=== PATIENT | male | born 1960 | race Caucasian/White ===

== ENCOUNTER 2024-05-28 17:43 | Emergency (ER) | payer SELFPAY ==
[2024-05-28] MEDS ORDERED: Sodium Chloride 0.9% 10 ML Syringe FLUSH PRN (17:46)
[2024-05-28] MEDS ORDERED: Morphine 4 MG/ML VIAL ONE ×2 (17:50→19:19)
[2024-05-28] MEDS ORDERED: Ketorolac 30 MG/ML SDV ONE (17:51)
[2024-05-28] MEDS: Morphine 4 MG/ML VIAL IVPUSH ONE ×2 (17:54→19:23)
[2024-05-28] MEDS: Ketorolac 30 MG/ML SDV IVPUSH ONE (17:59)
[2024-05-28 18:02] LABS: BASOPHILS ABSOLUTE AUTO 0.02 K/uL (0.02-0.10); BASOPHILS PERCENT AUTO 0.2 % (0.0-0.5); EOSINOPHILS ABSOLUTE AUTO 0.11 K/uL (0.04-0.40); HEMATOCRIT 41.3 % (40.0-54.0); HEMOGLOBIN 14.3 g/dL (13.0-18.0); LYMPHOCYTES ABSOLUTE AUTO 2.27 K/uL (1.50-4.00); LYMPHOCYTES PERCENT AUTO 19.6 % (20.0-40.0); MEAN CORPUSCULAR HGB CONC 34.6 g/dL (31.0-35.0); MEAN CORPUSCULAR VOLUME 98 fL (76-96); MEAN PLATELET VOLUME 9.8 fL (6.0-10.0); MONOCYTES ABSOLUTE AUTO 0.78 K/uL (0.20-0.80); MONOCYTES PERCENT AUTO 6.7 % (3.0-10.0); NEUTROPHILS ABSOLUTE AUTO 8.38 K/uL (2.00-7.50); NEUTROPHILS PERCENT AUTO 72.5 % (45.0-70.0); PLATELET COUNT,PLT 181 K/uL (150-400); RED BLOOD CELL COUNT 4.21 M/uL (4.50-6.50); RED CELL DISTRIBUTION WIDTH 12.8 % (11.0-16.0); WHITE BLOOD CELL COUNT,WBC 11.6 K/uL (4.0-11.0)
[2024-05-28 18:10] LABS: A/G RATIO 1.1 (0.8-2.0); ALBUMIN 3.6 g/dL (3.4-5.0); ANION GAP 10.5 mmol/L (5.0-15.0); BILIRUBIN TOTAL 0.8 mg/dL (0.0-1.0); BUN/CREATININE RATIO 12.5 (6-25); CALCIUM 8.6 mg/dL (8.5-10.1); CARBON DIOXIDE,CO2 28.3 mmol/L (21.0-32.0); CREATININE 1.04 mg/dL (0.70-1.30); EST CRCL DRUG DOSING (CG) 69.06 mL/min; POTASSIUM,K 3.8 mmol/L (3.5-5.1)
[2024-05-28] MEDS: Sodium Chloride 0.9% 1,000 ML IV SCH ×2 (18:33→20:05)
[2024-05-28] MEDS: Iopamidol 612 MG/ML 100 ML Bottle IV PRN (19:11)
[2024-05-28] MEDS: Sodium Chloride 0.9% 50 ML SDV FLUSH SCH (19:11)
[2024-05-28 19:17] LABS: APPEARANCE,URINE CLEAR (CLEAR); BILIRUBIN,URINE NEGATIVE (NEGATIVE); COLOR,URINE YELLOW; GLUCOSE,URINE NEGATIVE (NEGATIVE); KETONES,URINE NEGATIVE (NEGATIVE); LEUKOCYTE ESTERASE,URINE NEGATIVE (NEGATIVE); NITRITE,URINE NEGATIVE (NEGATIVE); OCCULT BLOOD,URINE MODERATE (NEGATIVE); PROTEIN,URINE NEGATIVE (NEGATIVE); UROBILINOGEN,URINE 0.2 E.U./dL (0.2-1.0)
[2024-05-28 19:21] LABS: WBC,URINE NOT SEEN /HPF
[2024-05-28] MEDS: Ciprofloxacin 500 MG Tab PO ONE (19:59)
[2024-05-28] MEDS: Tamsulosin 0.4 MG Cap.ER PO ONE (19:59)
[2024-05-28] MEDS ORDERED: Ciprofloxacin 500 MG Tab ONE (23:00)
[2024-05-28] MEDS ORDERED: traMADol 50 MG Tab ONE (23:00)
[2024-05-29 01:56] VITALS: BP 100/78; PULSE 77
== END 2024-05-29 00:10 | disposition home or self-care (01) ==
LOC: LB.ED 17:43
DX: N13.2 Hydronephrosis with renal and ureteral calculous obstruction (principal); F17.210 Nicotine dependence, cigarettes, uncomplicated; I48.91 Unspecified atrial fibrillation; I10 Essential (primary) hypertension; I25.2 Old myocardial infarction; Z95.0 Presence of cardiac pacemaker; E78.00 Pure hypercholesterolemia, unspecified; J44.9 Chronic obstructive pulmonary disease, unspecified; Z86.73 Personal history of transient ischemic attack (TIA), and cerebral infarction without residual deficits; Z95.5 Presence of coronary angioplasty implant and graft; Z91.030 Bee allergy status; Z91.018 Allergy to other foods; Z79.51 Long term (current) use of inhaled steroids; Z79.82 Long term (current) use of aspirin; Z79.01 Long term (current) use of anticoagulants; Z79.899 Other long term (current) drug therapy
CPT/HCPCS: 36415; 74177; 80053; 81001; 85025; 96361; 96374; 96375; 96376; 99283; 99284-25; A9270-GY; J1885; J2270; J3490; J7030; Q9967